=== PATIENT | female | born 1960 | race African-American/Black ===

== ENCOUNTER 2022-03-11 11:14 | Inpatient (IN) | payer OTHER ==
[2022-03-11] MEDS ORDERED: VANCOMYCIN 1 GM in D5W (PRE-DOCKED) 1,000 MG/250 ML IVPB ONE (13:29)
[2022-03-11] MEDS ORDERED: CEFEPIME HCL/D5W 1 GM/50 ML BAG IVPB ONE (13:31)
[2022-03-11] MEDS ORDERED: ACETAMINOPHEN 1000 MG/100 ML BAG IVPB ONE (13:48)
[2022-03-11] MEDS ORDERED: ACETAMINOPHEN INJECTION 100 ML IVPB ONE (14:21)
[2022-03-11] MEDS ORDERED: CEFEPIME 1 GM/100 ML BAG IVPB ONE (14:22)
[2022-03-11] MEDS ORDERED: VANCOMYCIN 1 GRAM (PRE-DOCKED) 1,000 MG/250 ML BAG IVPB ONE (14:22)
[2022-03-11 14:53] LABS: BASO % 0.4 % (0-2.0); EOS % 0.4 % (0-4.5); HEMATOCRIT 39.1 % (32.4-45.2); HEMOGLOBIN 13.2 GM/dL (10.7-15.3); LYMPH % 15.6 % (8-40); MCH 32.1 pg (25.7-33.7); MCHC 33.7 g/dl (32.0-36.0); MEAN CELL VOLUME 95.3 fl (80-96); MEAN PLT VOLUME 9.3 fl (7.5-11.1); MONO % 8.8 % (3.8-10.2); NEUT % 74.8 % (42.8-82.8); PLATELET COUNT 189 10^3/uL (134-434); RBC 4.11 M/mm3 (3.60-5.2); RDW 14.8 % (11.6-15.6); WHITE BLOOD COUNT 5.5 K/mm3 (4.0-10.0)
[2022-03-11 14:59] LABS: INR 1.15 (0.83-1.09); PROTHROMBIN TIME (PATIENT) 13.2 SEC (9.7-13.0)
[2022-03-11 15:02] LABS: ACTIVATED PTT 35.3 SECONDS (25.2-36.5)
[2022-03-11 15:16] LABS: CALCIUM 8.9 mg/dL (8.5-10.1)
[2022-03-11 15:17] LABS: ALBUMIN 3.3 g/dl (3.4-5.0); MAGNESIUM 2.2 mg/dL (1.8-2.4)
[2022-03-11 15:20] LABS: CREATININE 0.9 mg/dL (0.55-1.3)
[2022-03-11 15:22] LABS: BILIRUBIN,TOTAL 0.4 mg/dL (0.2-1); TOT PROT 8.3 g/dl (6.4-8.2)
[2022-03-11] MEDS ORDERED: HYDROCHLOROTHIAZIDE 25 MG TABLET (FP) ONE (17:05)
[2022-03-11] MEDS: HYDROCHLOROTHIAZIDE 25 MG TABLET (FP) PO SCH (17:32)
[2022-03-11 18:30] LABS: EPI CELLS 6 /uL (0-25.1); HYALINE CASTS 0 /uL (0-3.1); PH,URINE 7.5 (5.0-8.0); URINE APPEARANCE CLEAR; URINE BACTERIA 5 /uL (0-1359); URINE BILIRUBIN NEGATIVE (NEGATIVE); URINE COLOR YELLOW; URINE GLUCOSE (UA) NEGATIVE (NEGATIVE); URINE KETONE NEGATIVE (NEGATIVE); URINE LEUK ESTERASE NEGATIVE (NEGATIVE); URINE NITRITE NEGATIVE (NEGATIVE); URINE PROTEIN 1+ (NEGATIVE); URINE RBC 6 /uL (0-23.9); URINE UROBILINOGEN 0.2 mg/dL (0.2-1.0); URINE WBC 23 /uL (0-25.8)
[2022-03-11] MEDS: ENOXAPARIN NA (PORCINE) 40 MG/0.4 ML DISP.SYRIN SQ SCH (21:12)
[2022-03-11 22:23] VITALS: BMI 41.7
[2022-03-12] MEDS ORDERED: NIFEdipine E.R. 30 MG TABLET PO ONE (04:21)
[2022-03-12] MEDS ORDERED: LOSARTAN POTASSIUM 50 MG TABLET PO ONE ×2 (04:23→16:44)
[2022-03-12 08:25] LABS: HEMATOCRIT 38.9 % (32.4-45.2); HEMOGLOBIN 12.8 GM/dL (10.7-15.3); MCH 31.4 pg (25.7-33.7); MCHC 32.9 g/dl (32.0-36.0); MEAN CELL VOLUME 95.3 fl (80-96); MEAN PLT VOLUME 9.3 fl (7.5-11.1); PLATELET COUNT 176 10^3/uL (134-434); RBC 4.08 M/mm3 (3.60-5.2); RDW 14.6 % (11.6-15.6); WHITE BLOOD COUNT 5.7 K/mm3 (4.0-10.0)
[2022-03-12 08:40] LABS: CALCIUM 9.5 mg/dL (8.5-10.1)
[2022-03-12 08:41] LABS: ALBUMIN 3.2 g/dl (3.4-5.0); BLOOD UREA NITROGEN 12.3 mg/dL (7-18)
[2022-03-12 08:44] LABS: CREATININE 0.9 mg/dL (0.55-1.3)
[2022-03-12 08:45] LABS: BILIRUBIN,TOTAL 0.8 mg/dL (0.2-1)
[2022-03-12] MEDS: HYDROCHLOROTHIAZIDE 25 MG TABLET (FP) PO SCH ×2 (09:37→10:19)
[2022-03-12] MEDS: ENOXAPARIN NA (PORCINE) 40 MG/0.4 ML DISP.SYRIN SQ SCH ×2 (09:37→21:28)
[2022-03-12] MEDS ORDERED: LOSARTAN POTASSIUM 50 MG TABLET PO SCH (10:00)
[2022-03-12] MEDS ORDERED: VANCOMYCIN/WATER 1,250 MG/250 ML BAG IVPB SCH ×2 (10:00)
[2022-03-12] MEDS: COLLAGENASE CLOSTRIDIUM HIST. 30 GRAMS TUBE TP SCH (12:04)
[2022-03-12] MEDS ORDERED: PIPERACILLIN/TAZOBACTAM 3.375 GM VIAL IVPB ONE ×2 (14:05→17:18)
[2022-03-12] MEDS ORDERED: DEXTROSE 5%-WATER - 50 ML IVPB ONE ×2 (14:05→17:19)
[2022-03-12] MEDS: PIPERACILLIN/TAZOB 3.375 GM 3.375 GM in DEXTROSE 5%-WATER - 50 ML IVPB SCH ×3 (14:17→18:50)
[2022-03-12] MEDS: VANCOMYCIN/WATER FOR INJ (PEG) 1,000 MG/200 ML BAG IVPB SCH (21:28)
[2022-03-13] MEDS ORDERED: DEXTROSE 5%-WATER - 50 ML IVPB ONE ×3 (01:16→16:41)
[2022-03-13] MEDS ORDERED: PIPERACILLIN/TAZOBACTAM 3.375 GM VIAL IVPB ONE ×3 (01:16→16:41)
[2022-03-13] MEDS: PIPERACILLIN/TAZOB 3.375 GM 3.375 GM in DEXTROSE 5%-WATER - 50 ML IVPB SCH ×3 (01:31→18:36)
[2022-03-13 08:32] LABS: BASO % 0.6 % (0-2.0); EOS % 1.6 % (0-4.5); HEMATOCRIT 37.5 % (32.4-45.2); HEMOGLOBIN 12.3 GM/dL (10.7-15.3); LYMPH % 19.9 % (8-40); MCH 31.3 pg (25.7-33.7); MCHC 32.9 g/dl (32.0-36.0); MEAN CELL VOLUME 95.1 fl (80-96); MEAN PLT VOLUME 9.4 fl (7.5-11.1); MONO % 9.4 % (3.8-10.2); NEUT % 68.5 % (42.8-82.8); PLATELET COUNT 178 10^3/uL (134-434); RBC 3.95 M/mm3 (3.60-5.2); RDW 14.4 % (11.6-15.6); WHITE BLOOD COUNT 4.4 K/mm3 (4.0-10.0)
[2022-03-13 08:52] LABS: CALCIUM 8.7 mg/dL (8.5-10.1)
[2022-03-13 08:53] LABS: BLOOD UREA NITROGEN 15.3 mg/dL (7-18)
[2022-03-13 08:56] LABS: CREATININE 1.2 mg/dL (0.55-1.3); PHOSPHOROUS 4.3 mg/dL (2.5-4.9)
[2022-03-13] MEDS: HYDROCHLOROTHIAZIDE 25 MG TABLET (FP) PO SCH (10:21)
[2022-03-13] MEDS: LOSARTAN POTASSIUM 50 MG TABLET PO SCH (10:21)
[2022-03-13] MEDS: COLLAGENASE CLOSTRIDIUM HIST. 30 GRAMS TUBE TP SCH (10:51)
[2022-03-13] MEDS: ENOXAPARIN NA (PORCINE) 40 MG/0.4 ML DISP.SYRIN SQ SCH ×2 (11:49→21:34)
[2022-03-13] MEDS: VANCOMYCIN/WATER FOR INJ (PEG) 1,000 MG/200 ML BAG IVPB SCH (21:34)
[2022-03-14] MEDS ORDERED: PIPERACILLIN/TAZOBACTAM 3.375 GM VIAL IVPB ONE ×3 (01:42→17:24)
[2022-03-14] MEDS ORDERED: DEXTROSE 5%-WATER - 50 ML IVPB ONE ×3 (01:43→17:24)
[2022-03-14] MEDS: PIPERACILLIN/TAZOB 3.375 GM 3.375 GM in DEXTROSE 5%-WATER - 50 ML IVPB SCH ×3 (01:57→17:41)
[2022-03-14 08:33] LABS: BASO % 0.4 % (0-2.0); EOS % 1.3 % (0-4.5); HEMATOCRIT 38.2 % (32.4-45.2); HEMOGLOBIN 12.7 GM/dL (10.7-15.3); LYMPH % 20.4 % (8-40); MCH 31.6 pg (25.7-33.7); MCHC 33.2 g/dl (32.0-36.0); MEAN CELL VOLUME 95.2 fl (80-96); MEAN PLT VOLUME 9.2 fl (7.5-11.1); MONO % 11.1 % (3.8-10.2); NEUT % 66.8 % (42.8-82.8); PLATELET COUNT 184 10^3/uL (134-434); RBC 4.02 M/mm3 (3.60-5.2); RDW 14.6 % (11.6-15.6)
[2022-03-14 09:02] LABS: CALCIUM 8.8 mg/dL (8.5-10.1)
[2022-03-14 09:03] LABS: BLOOD UREA NITROGEN 19.2 mg/dL (7-18); MAGNESIUM 2.2 mg/dL (1.8-2.4)
[2022-03-14 09:06] LABS: PHOSPHOROUS 3.8 mg/dL (2.5-4.9)
[2022-03-14] MEDS: HYDROCHLOROTHIAZIDE 25 MG TABLET (FP) PO SCH (10:02)
[2022-03-14] MEDS: LOSARTAN POTASSIUM 50 MG TABLET PO SCH (10:02)
[2022-03-14] MEDS: ENOXAPARIN NA (PORCINE) 40 MG/0.4 ML DISP.SYRIN SQ SCH ×2 (10:02→21:25)
[2022-03-14] MEDS: COLLAGENASE CLOSTRIDIUM HIST. 30 GRAMS TUBE TP SCH (10:07)
[2022-03-14] MEDS: SILVER SULFADIAZINE 1% TOP CREAM 50 GM JAR TP SCH ×2 (14:31→21:25)
[2022-03-15] MEDS ORDERED: DEXTROSE 5%-WATER - 50 ML IVPB ONE ×3 (01:33→17:52)
[2022-03-15] MEDS ORDERED: PIPERACILLIN/TAZOBACTAM 3.375 GM VIAL IVPB ONE ×3 (01:33→17:52)
[2022-03-15] MEDS: PIPERACILLIN/TAZOB 3.375 GM 3.375 GM in DEXTROSE 5%-WATER - 50 ML IVPB SCH ×3 (01:39→17:58)
[2022-03-15 07:37] LABS: BASO % 0.7 % (0-2.0); EOS % 1.1 % (0-4.5); HEMATOCRIT 40.5 % (32.4-45.2); HEMOGLOBIN 13.7 GM/dL (10.7-15.3); LYMPH % 28.8 % (8-40); MCH 32.2 pg (25.7-33.7); MCHC 33.9 g/dl (32.0-36.0); MEAN CELL VOLUME 95.1 fl (80-96); MEAN PLT VOLUME 9.3 fl (7.5-11.1); MONO % 11.5 % (3.8-10.2); NEUT % 57.9 % (42.8-82.8); PLATELET COUNT 188 10^3/uL (134-434); RBC 4.27 M/mm3 (3.60-5.2); RDW 14.7 % (11.6-15.6); WHITE BLOOD COUNT 5.1 K/mm3 (4.0-10.0)
[2022-03-15 07:51] LABS: CALCIUM 9.1 mg/dL (8.5-10.1)
[2022-03-15 07:52] LABS: CREATININE 1.1 mg/dL (0.55-1.3); MAGNESIUM 2.2 mg/dL (1.8-2.4)
[2022-03-15 07:53] LABS: PHOSPHOROUS 3.6 mg/dL (2.5-4.9)
[2022-03-15] MEDS: LOSARTAN POTASSIUM 50 MG TABLET PO SCH (09:49)
[2022-03-15] MEDS: HYDROCHLOROTHIAZIDE 25 MG TABLET (FP) PO SCH (09:49)
[2022-03-15] MEDS: ENOXAPARIN NA (PORCINE) 40 MG/0.4 ML DISP.SYRIN SQ SCH ×2 (09:49→21:43)
[2022-03-15] MEDS: SILVER SULFADIAZINE 1% TOP CREAM 50 GM JAR TP SCH ×2 (09:50→21:43)
[2022-03-15] MEDS: NEBIVOLOL 5 MG TABLET (FP) PO SCH (12:24)
[2022-03-16] MEDS ORDERED: DEXTROSE 5%-WATER - 50 ML IVPB ONE ×3 (01:56→18:24)
[2022-03-16] MEDS ORDERED: PIPERACILLIN/TAZOBACTAM 3.375 GM VIAL IVPB ONE ×3 (01:56→18:24)
[2022-03-16] MEDS: PIPERACILLIN/TAZOB 3.375 GM 3.375 GM in DEXTROSE 5%-WATER - 50 ML IVPB SCH ×3 (02:28→18:25)
[2022-03-16] MEDS: LOSARTAN POTASSIUM 50 MG TABLET PO SCH (10:03)
[2022-03-16] MEDS: NEBIVOLOL 5 MG TABLET (FP) PO SCH (10:03)
[2022-03-16] MEDS: SILVER SULFADIAZINE 1% TOP CREAM 50 GM JAR TP SCH ×2 (10:03→21:31)
[2022-03-16] MEDS: ENOXAPARIN NA (PORCINE) 40 MG/0.4 ML DISP.SYRIN SQ SCH ×2 (10:03→21:30)
[2022-03-16] MEDS: HYDROCHLOROTHIAZIDE 25 MG TABLET (FP) PO SCH (10:03)
[2022-03-16 10:33] LABS: BASO % 0.5 % (0-2.0); EOS % 0.6 % (0-4.5); HEMATOCRIT 37.4 % (32.4-45.2); HEMOGLOBIN 12.6 GM/dL (10.7-15.3); LYMPH % 21.6 % (8-40); MCH 31.9 pg (25.7-33.7); MCHC 33.6 g/dl (32.0-36.0); MEAN CELL VOLUME 94.9 fl (80-96); MONO % 9.2 % (3.8-10.2); NEUT % 68.1 % (42.8-82.8); PLATELET COUNT 180 10^3/uL (134-434); RBC 3.94 M/mm3 (3.60-5.2); RDW 14.7 % (11.6-15.6); WHITE BLOOD COUNT 4.9 K/mm3 (4.0-10.0)
[2022-03-16 10:53] LABS: CALCIUM 9.1 mg/dL (8.5-10.1)
[2022-03-16 10:54] LABS: BLOOD UREA NITROGEN 17.8 mg/dL (7-18)
[2022-03-16 10:57] LABS: CREATININE 1.1 mg/dL (0.55-1.3); PHOSPHOROUS 4.1 mg/dL (2.5-4.9)
[2022-03-17] MEDS ORDERED: PIPERACILLIN/TAZOBACTAM 3.375 GM VIAL IVPB ONE ×2 (01:04→09:22)
[2022-03-17] MEDS ORDERED: DEXTROSE 5%-WATER - 50 ML IVPB ONE ×2 (01:04→09:22)
[2022-03-17] MEDS: PIPERACILLIN/TAZOB 3.375 GM 3.375 GM in DEXTROSE 5%-WATER - 50 ML IVPB SCH ×2 (01:53→09:52)
[2022-03-17 08:51] LABS: BASO % 0.7 % (0-2.0); EOS % 0.6 % (0-4.5); LYMPH % 18.8 % (8-40); MCH 31.7 pg (25.7-33.7); MCHC 33.2 g/dl (32.0-36.0); MEAN CELL VOLUME 95.5 fl (80-96); MEAN PLT VOLUME 9.3 fl (7.5-11.1); MONO % 9.7 % (3.8-10.2); NEUT % 70.2 % (42.8-82.8); PLATELET COUNT 181 10^3/uL (134-434); RBC 4.09 M/mm3 (3.60-5.2); RDW 14.8 % (11.6-15.6); WHITE BLOOD COUNT 5.2 K/mm3 (4.0-10.0)
[2022-03-17 09:14] LABS: ALBUMIN 3.4 g/dl (3.4-5.0); BLOOD UREA NITROGEN 21.3 mg/dL (7-18)
[2022-03-17 09:17] LABS: CREATININE 1.1 mg/dL (0.55-1.3); PHOSPHOROUS 4.1 mg/dL (2.5-4.9)
[2022-03-17 09:19] LABS: BILIRUBIN,TOTAL 0.3 mg/dL (0.2-1); TOT PROT 7.9 g/dl (6.4-8.2)
[2022-03-17] MEDS: NEBIVOLOL 5 MG TABLET (FP) PO SCH (09:53)
[2022-03-17] MEDS: HYDROCHLOROTHIAZIDE 25 MG TABLET (FP) PO SCH (09:53)
[2022-03-17] MEDS: LOSARTAN POTASSIUM 50 MG TABLET PO SCH (09:53)
[2022-03-17] MEDS: ENOXAPARIN NA (PORCINE) 40 MG/0.4 ML DISP.SYRIN SQ SCH (09:53)
[2022-03-17] MEDS: SILVER SULFADIAZINE 1% TOP CREAM 50 GM JAR TP SCH (09:54)
[2022-03-17 10:00] VITALS: BP 151/92; PULSE 66; TEMP 98.3
== END 2022-03-17 13:47 | disposition home or self-care (01) | DRG 383 ==
LOC: JER 11:14 → JERBED 15:20 → J6S 20:34
PROVIDERS: ADMIT Internal Medicine; ATTEND Internal Medicine
DX: L03.115 Cellulitis of right lower limb (principal); L97.819 Non-pressure chronic ulcer of other part of right lower leg with unspecified severity; I87.2 Venous insufficiency (chronic) (peripheral); M86.661 Other chronic osteomyelitis, right tibia and fibula; Z68.41 Body mass index [BMI] 40.0-44.9, adult; I16.0 Hypertensive urgency; R82.81 Pyuria; I10 Essential (primary) hypertension; R93.89 Abnormal findings on diagnostic imaging of other specified body structures; E66.9 Obesity, unspecified
CPT/HCPCS: 36415; 71046-TC-FY; 73590-TC-RT-FY; 73610-TC-RT-FY; 73630-TC-RT-FY; 73718-TC-RT; 74177-TC; 80048; 80053; 81003; 83735; 84100; 85025; 85027; 85610; 85651; 85730; 86140; 87040; 87070; 87086; 87205; 93005; 93010; 93971-TC; 99285-25; C9803-CS; G0480; Q9967; U0003; U0005

== ENCOUNTER 2022-04-25 13:25 | Inpatient (IN) | payer OTHER ==
[2022-04-25] MEDS ORDERED: HYDROCHLOROTHIAZIDE 25 MG TABLET (FP) PO ONE (14:13)
[2022-04-25] MEDS ORDERED: LOSARTAN POTASSIUM 50 MG TABLET PO ONE (14:18)
[2022-04-25] MEDS ORDERED: NEBIVOLOL 5 MG TABLET (FP) PO ONE (14:18)
[2022-04-25] MEDS ORDERED: HYDROCHLOROTHIAZIDE 25 MG TABLET (FP) ONE (14:39)
[2022-04-25] MEDS ORDERED: LOSARTAN POTASSIUM 50 MG TABLET ONE (14:39)
[2022-04-25 16:24] LABS: BASO % 0.2 % (0-2.0); EOS % 0.7 % (0-4.5); HEMATOCRIT 38.8 % (32.4-45.2); HEMOGLOBIN 12.9 GM/dL (10.7-15.3); LYMPH % 25.3 % (8-40); MCHC 33.4 g/dl (32.0-36.0); MEAN CELL VOLUME 95.8 fl (80-96); MEAN PLT VOLUME 9.4 fl (7.5-11.1); MONO % 9.7 % (3.8-10.2); NEUT % 64.1 % (42.8-82.8); PLATELET COUNT 163 10^3/uL (134-434); RBC 4.05 M/mm3 (3.60-5.2); RDW 15.2 % (11.6-15.6); WHITE BLOOD COUNT 5.6 K/mm3 (4.0-10.0)
[2022-04-25 16:46] LABS: CALCIUM 9.2 mg/dL (8.5-10.1)
[2022-04-25 16:47] LABS: ALBUMIN 3.6 g/dl (3.4-5.0); BLOOD UREA NITROGEN 13.6 mg/dL (7-18)
[2022-04-25 16:50] LABS: CREATININE 0.8 mg/dL (0.55-1.3)
[2022-04-25 16:51] LABS: BILIRUBIN,TOTAL 0.5 mg/dL (0.2-1); TOT PROT 8.2 g/dl (6.4-8.2)
[2022-04-25] MEDS ORDERED: LABETALOL HCL 5 MG/1 ML (100MG/20 ML VIAL) IVPUSH ONE ×3 (17:08→22:15)
[2022-04-25] MEDS ORDERED: LABETALOL HCL 5 MG/1 ML (100MG/20 ML VIAL) ONE (17:16)
[2022-04-26 00:26] VITALS: BMI 43.2
[2022-04-26 09:15] LABS: BASO % 0.4 % (0-2.0); EOS % 0.9 % (0-4.5); HEMATOCRIT 37.5 % (32.4-45.2); HEMOGLOBIN 12.6 GM/dL (10.7-15.3); LYMPH % 18.4 % (8-40); MCH 32.1 pg (25.7-33.7); MCHC 33.7 g/dl (32.0-36.0); MEAN CELL VOLUME 95.2 fl (80-96); MEAN PLT VOLUME 9.5 fl (7.5-11.1); NEUT % 70.3 % (42.8-82.8); PLATELET COUNT 156 10^3/uL (134-434); RBC 3.94 M/mm3 (3.60-5.2); RDW 15.2 % (11.6-15.6); WHITE BLOOD COUNT 4.6 K/mm3 (4.0-10.0)
[2022-04-26 09:58] LABS: CALCIUM 8.8 mg/dL (8.5-10.1)
[2022-04-26] MEDS ORDERED: LOSARTAN POTASSIUM 50 MG TABLET PO SCH (10:00)
[2022-04-26] MEDS ORDERED: HYDROCHLOROTHIAZIDE 25 MG TABLET (FP) PO SCH (10:00)
[2022-04-26] MEDS ORDERED: NEBIVOLOL 10 MG TABLET (FP) PO SCH (10:00)
[2022-04-26] MEDS ORDERED: ENOXAPARIN NA (PORCINE) 40 MG/0.4 ML DISP.SYRIN SQ SCH (10:00)
[2022-04-26 10:01] LABS: ALBUMIN 3.3 g/dl (3.4-5.0); MAGNESIUM 2.1 mg/dL (1.8-2.4)
[2022-04-26 10:02] LABS: CREATININE 0.9 mg/dL (0.55-1.3)
[2022-04-26 10:03] LABS: PHOSPHOROUS 3.5 mg/dL (2.5-4.9); TOT PROT 7.6 g/dl (6.4-8.2)
[2022-04-26 10:05] LABS: BILIRUBIN,TOTAL 0.7 mg/dL (0.2-1)
[2022-04-26 15:05] VITALS: BP 108/55; PULSE 79; TEMP 97.8
[2022-04-26] MEDS ORDERED: ATORVASTATIN CA 20 MG TABLET (FP) PO SCH (22:00)
== END 2022-04-26 18:13 | disposition home or self-care (01) | DRG 199 ==
LOC: JER 13:25 → JERBED 20:27 → J4W 23:38
PROVIDERS: ADMIT Hospitalist; ATTEND Internal Medicine
DX: I16.1 Hypertensive emergency (principal); I67.4 Hypertensive encephalopathy; H53.8 Other visual disturbances; S81.801A Unspecified open wound, right lower leg, initial encounter; E11.9 Type 2 diabetes mellitus without complications; Z91.14 Patient's other noncompliance with medication regimen
CPT/HCPCS: 36415; 70450-TC; 70551-TC; 80053; 80061; 83036; 83735; 84100; 84484; 85025; 93005; 93010; 99291; C9803-CS; G0463-25; U0003; U0005